=== PATIENT | female | born 1990 | race Caucasian/White ===

== ENCOUNTER → 2017-06-13 | Emergency (ER) | payer MEDICAID, OTHER ==
[2015-07-26 08:58] VITALS: Ht 160 cm; Wt 61.2 kg
[~2017-06-13] VITALS: Ht 160 cm; Wt 61.2 kg
[~2017-06-13] MED LIST: ACET/HYDROC 5/325MG TH ER ONLY 2 TAB/BOTTLE PO ONE; BIRTH CONTROL; CIP500 PO; CIPR-326 PO; DEXT10TA9 PO; DIP25 PO; DOCU240C67 PO; ETHI1TAB26 PO; HYDRO25 PO; IBU800 PO; IBUP600T22 PO; LOR5/325 PO; Lanolin TP; METH20TA33 PO; METH27ERPT PO; METH30CP PO; NAPR500T75 PO; NIT100 PO; ONDA4TAB PO; OXYC-865 PO; PER PO; PHEN-530 PO; PRE20 PO; PREN-85 PO; TUCKS TP; VITA1CAP46 PO; [UNRECOGNIZED DRUG - REMARK]
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
[2017-06-13 04:21] VITALS: BP 121/77
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
== END ==
LOC: ER 03:34
DX: S00.83XA Contusion of other part of head, initial encounter (principal); S50.02XA Contusion of left elbow, initial encounter; S60.212A Contusion of left wrist, initial encounter; Y04.2XXA Assault by strike against or bumped into by another person, initial encounter
CPT/HCPCS: 70450; 70486; 72125; 99282

== ENCOUNTER 2018-11-22 19:34 | Emergency (ER) | payer BC ==
[2015-07-26 08:58] VITALS: Wt 73.5 kg
[~2018-11-22 19:34] MED LIST changes: -ACET/HYDROC 5/325MG TH ER ONLY 2 TAB/BOTTLE PO ONE
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
[2018-11-22] MEDS ORDERED: NS(*) 0.9% 1000 ML BAG 1,000 ML IV ONE (20:05)
[2018-11-22 20:13] LABS: PLATELET COUNT, AUTOMATED 208 K/uL (150-450)
[2018-11-22 21:30] VITALS: BP 108/60
== END 2018-11-22 22:04 | disposition home or self-care (01) ==
LOC: ER 19:57
DX: R00.0 Tachycardia, unspecified (principal); Z33.1 Pregnant state, incidental; Z3A.24 24 weeks gestation of pregnancy; J45.909 Unspecified asthma, uncomplicated; F32.9 Major depressive disorder, single episode, unspecified; Z79.899 Other long term (current) drug therapy
CPT/HCPCS: 81001; 85025; 99282; J7030; 82040; 82247; 82310; 82374; 82435; 82565; 82947; 84075; 84132; 84155; 84295; 84450; 84460; 84520